=== PATIENT | male | born 1975 | race Two or more races ===

== ENCOUNTER 2023-06-05 07:28 | Outpatient (CLI) | payer OTHER | END 2023-06-05 07:34 | disposition home or self-care (01) | LOC: NUCLEAR 07:28 | PROVIDERS: ATTEND Internal Medicine Cardiovascular Disease | DX: I25.119 Atherosclerotic heart disease of native coronary artery with unspecified angina pectoris (principal); I11.9 Hypertensive heart disease without heart failure; I25.2 Old myocardial infarction; I70.0 Atherosclerosis of aorta; E78.2 Mixed hyperlipidemia; G47.33 Obstructive sleep apnea (adult) (pediatric) ==